=== PATIENT | female | born 1955 | race Two or more races ===

== ENCOUNTER → 2016-10-30 | Outpatient (CLI) | payer OTHER, MEDICAID ==
[~2016-10-30] VITALS: Ht 154.9 cm; Wt 74.8 kg
[~2016-10-30] MED LIST: AMLO5TAB2 PO; ASPI-407 PO; BENA40TA2 PO; CLOP75TA28 PO; INSUINJ37 SUBCUT; ISOS1TAB37 PO; LIRA18IN2 SUBCUT; METF-314 PO; METO-158 PO; PANT40T PO; SIMV-8 PO
[2016-10-30 08:45] VITALS: BP 143/73
[2016-10-30 09:15] VITALS: BP 133/71
[2016-10-30 12:31] LABS: Basophils # (auto) 0.1 uL; Basophils % (auto) 0.5 % (0.0-2.0); DEFINITIVE VIEW TRANSMISSION; Eosinophils # (auto) 0.4 uL; Eosinophils % (auto) 3.2 % (0.0-7.0); Hematocrit 42.2 % (36.0-46.0); Hemoglobin 13.1 g/dL (12.2-16.2); Lymphocytes # (auto) 2.7 uL; Mean Corpuscular Hemoglobin 25.7 pg (28.0-32.0); Mean Corpuscular Hgb Conc. 31.2 g/dL (32.0-36.0); Mean Corpuscular Volume 82.3 fL (80.0-100.0); Monocytes # (auto) 0.9 uL; Monocytes % (auto) 7.9 % (0.0-12.0); Neutrophils # (auto) 7.3 uL; Neutrophils % (auto) 64.4 % (37.0-80.0); Platelet Count (auto) 315 10^3/uL (140-450); Red Cell Distribution Width 15.6 % (11.6-16.0); White Blood Cell 11.3 10^3/uL (4.4-10.8)
[2016-10-30 12:50] LABS: INR 1.03 (0.9-1.15); Partial Thromboplastin Time 27.8 sec (22.64-33.71); Prothrombin Time 10.6 sec (9.37-12.3)
[2016-10-30 13:38] LABS: BUN/Creatinine Ratio 22.6; Potassium 4.9 mmol/L (3.5-5.1)
== END | disposition home or self-care (01) ==
LOC: Rad HDHVI 08:26
PROVIDERS: ATTEND Internal Medicine Cardiovascular Disease
DX: I10 Essential (primary) hypertension (principal); D64.9 Anemia, unspecified; R79.1 Abnormal coagulation profile
CPT/HCPCS: 36415; 71020; 80048; 85025; 85610; 85730; 93005; G0463

== ENCOUNTER → 2016-12-26 | Outpatient (CLI) | payer OTHER, MEDICAID ==
[2016-12-26 09:00] VITALS: BP 126/69
[2016-12-26 09:30] VITALS: BP 115/67
[2016-12-26 13:08] LABS: Basophils # (auto) 0.1 uL; Basophils % (auto) 0.6 % (0.0-2.0); DEFINITIVE VIEW TRANSMISSION; Eosinophils # (auto) 0.3 uL; Eosinophils % (auto) 3.4 % (0.0-7.0); Hemoglobin 13.7 g/dL (12.2-16.2); Lymphocytes # (auto) 2.1 uL; Lymphocytes % (auto) 26.1 % (10.0-50.0); Mean Corpuscular Hemoglobin 26.4 pg (28.0-32.0); Mean Corpuscular Hgb Conc. 32.6 g/dL (32.0-36.0); Mean Platelet Volume 9.8 fL (7.4-10.4); Monocytes # (auto) 0.7 uL; Neutrophils # (auto) 5.1 uL; Neutrophils % (auto) 61.9 % (37.0-80.0); Platelet Count (auto) 336 10^3/uL (140-450); Red Cell Distribution Width 15.3 % (11.6-16.0); White Blood Cell 8.2 10^3/uL (4.4-10.8)
[2016-12-26 13:17] LABS: INR 0.99 (0.9-1.15); Partial Thromboplastin Time 24.4 sec (22.64-33.71); Prothrombin Time 10.7 sec (9.37-12.3)
[2016-12-26 13:19] LABS: Calcium 9.5 mg/dL (8.5-10.1); Potassium 4.3 mmol/L (3.5-5.1)
== END | disposition home or self-care (01) ==
LOC: Rad HDHVI 08:44
PROVIDERS: ATTEND Internal Medicine Cardiovascular Disease
DX: I10 Essential (primary) hypertension (principal); D64.9 Anemia, unspecified; R79.1 Abnormal coagulation profile; Z01.812 Encounter for preprocedural laboratory examination
CPT/HCPCS: 36415; 71020; 80048; 85025; 85610; 85730; 93005; G0463

== ENCOUNTER → 2017-07-25 | Outpatient (CLI) | payer OTHER, MEDICAID ==
[~2017-07-25] MED LIST changes: -BENA40TA2 PO; +BENA40TA7 PO; -METF-314 PO; +METF-371 PO
== END | disposition home or self-care (01) ==
LOC: Rad HDHVI 08:35
PROVIDERS: ATTEND Internal Medicine Cardiovascular Disease
DX: I50.1 Left ventricular failure, unspecified (principal); I77.1 Stricture of artery
CPT/HCPCS: 93306; 93880

== ENCOUNTER → 2017-07-27 | Outpatient (CLI) | payer OTHER, MEDICAID ==
[~2017-07-27] VITALS: Ht 154.9 cm; Wt 74.4 kg
[~2017-07-27] MED LIST changes: +ADENOSINE 62 MG in GIVE UN-DILUTED 0 ML IV ONE; +ADENOSINE 90 MG/30 ML INJ IV ONE
== END | disposition home or self-care (01) ==
LOC: Rad HDHVI 08:09
PROVIDERS: ATTEND Internal Medicine Cardiovascular Disease
DX: I10 Essential (primary) hypertension (principal); I25.119 Atherosclerotic heart disease of native coronary artery with unspecified angina pectoris; E11.9 Type 2 diabetes mellitus without complications; I25.2 Old myocardial infarction; E78.00 Pure hypercholesterolemia, unspecified
CPT/HCPCS: 78452; 93005; 96374; 96375; A9500; J0153

== ENCOUNTER → 2017-10-15 | Outpatient (CLI) | payer OTHER, MEDICAID ==
[~2017-10-15] MED LIST changes: -ADENOSINE 62 MG in GIVE UN-DILUTED 0 ML IV ONE; -ADENOSINE 90 MG/30 ML INJ IV ONE; +INSLANTI SC; +METO-169 PO
[2017-10-15 08:55] VITALS: BP 109/64
[2017-10-15 09:32] VITALS: BP 109/64
[2017-10-15 12:10] LABS: Basophils # (auto) 0.1 uL; Basophils % (auto) 0.7 % (0.0-2.0); Eosinophils # (auto) 0.3 uL; Lymphocytes # (auto) 2.3 uL; Mean Corpuscular Hemoglobin 26.6 pg (28.0-32.0); Monocytes # (auto) 0.6 uL; Red Cell Distribution Width 14.8 % (11.8-14.3)
[2017-10-15 12:14] LABS: Eosinophils % (auto) 3.3 % (0.0-7.0); Hematocrit 39.2 % (36.0-46.0); Hemoglobin 12.8 g/dL (12.2-16.2); Lymphocytes % (auto) 30.9 % (10.0-50.0); Mean Corpuscular Hgb Conc. 32.7 g/dL (32.0-36.0); Mean Corpuscular Volume 81.2 fL (80.0-100.0); Monocytes % (auto) 8.5 % (0.0-12.0); Neutrophils # (auto) 4.2 uL; Neutrophils % (auto) 56.6 % (37.0-80.0); Nucleated Red Blood Cells % 0.5 %; Platelet Count (auto) 287 10^3/uL (140-450); Red Blood Cells 4.83 10^6/uL (4.0-5.20); White Blood Cell 7.5 10^3/uL (4.4-10.8)
[2017-10-15 12:24] LABS: BUN/Creatinine Ratio 22.4; Calcium 9.2 mg/dL (8.5-10.1); Potassium 5.1 mmol/L (3.5-5.1)
[2017-10-15 12:29] LABS: INR 0.96 (0.9-1.15); Partial Thromboplastin Time 27.1 sec (22.64-33.71); Prothrombin Time 10.5 sec (9.37-12.3)
== END | disposition home or self-care (01) ==
LOC: CHF HDHVI 08:38
PROVIDERS: ATTEND Internal Medicine Cardiovascular Disease
DX: Z01.818 Encounter for other preprocedural examination (principal); D64.9 Anemia, unspecified; I10 Essential (primary) hypertension; R79.1 Abnormal coagulation profile; I70.0 Atherosclerosis of aorta; M47.894 Other spondylosis, thoracic region
CPT/HCPCS: 36415; 71046; 80048; 85025; 85610; 85730; 93005; G0463

== ENCOUNTER 2017-10-18 06:45 | Inpatient (IN) | payer OTHER, MEDICAID ==
[~2017-10-18] VITALS: Ht 154.9 cm; Wt 73.0 kg
[~2017-10-18 06:45] MED LIST changes: -AMLO5TAB2 PO; -INSUINJ37 SUBCUT; -METO-158 PO
[2017-10-18] MEDS ORDERED: IOHEXOL 350 MG/ML 100ML IJ ONE (07:30)
[2017-10-18] MEDS ORDERED: LIDOCAINE 2%HCL (LOCAL ANESTH.) INJ 20ML MDV ONE (07:30)
[2017-10-18] MEDS ORDERED: MIDAZOLAM HCL 1MG/1ML-2 ML VIAL ONE (08:05)
[2017-10-18] MEDS ORDERED: VANCOMYCIN HCL 1000 MG VL ONE (08:05)
[2017-10-18] MEDS ORDERED: fentaNYL CITRATE 100 MCG/2 ML VL ONE (08:05)
[2017-10-18] MEDS ORDERED: VANCOMYCIN 1GM/250ML 250 ML IV ONE (08:06)
[2017-10-18] MEDS ORDERED: ceFAZolin 1GM/50ML 50 ML IV ONE (08:06)
[2017-10-18] MEDS ORDERED: NITROGLYCERIN 0.4 MG SL TAB SL PRN (10:45)
[2017-10-18] MEDS ORDERED: MORPHINE SULF INJ 2 MG/ML SYRINGE 1ML IV PRN (10:45)
[2017-10-18] MEDS ORDERED: LORazepam 0.5 MG TAB PO PRN (10:45)
[2017-10-18] MEDS ORDERED: DEXTROSE (50%) 50ML SYRG IV PRN (10:45)
[2017-10-18] MEDS ORDERED: HYDROcodone-ACET 5/325MG TAB PO PRN (10:45)
[2017-10-18] MEDS ORDERED: METOPROLOL SUCCINATE XL 50 MG TAB PO ONE (11:00)
[2017-10-18] MEDS ORDERED: CLOPIDOGREL BISULFATE 75 MG TAB PO ONE (11:00)
[2017-10-18] MEDS ORDERED: PANTOPRAZOLE 40 MG TAB PO ONE (11:00)
[2017-10-18] MEDS: InsuLIN REG 1unit/0.01ml Soln (100units/ml) SC SCH ×2 (11:30→16:59)
[2017-10-18] MEDS: HYDROcodone-ACET 10/325MG TAB PO PRN ×3 (11:41→22:05)
[2017-10-18] MEDS: ACCU-CHEK COMFORT CURVE STRIP VI SCH ×3 (11:42→21:27)
[2017-10-18 14:30] VITALS: BP 114/68
[2017-10-18 15:00] VITALS: BP 114/68
[2017-10-18] MEDS ORDERED: MORPHINE SULFATE 4 MG/ML SYR/VIAL IV PRN (20:15)
[2017-10-18] MEDS: VANCOMYCIN 1GM/250ML 250 ML IV SCH (21:59)
[2017-10-18 22:00] VITALS: BP 122/66
[2017-10-18] MEDS ORDERED: InsuLIN REG 1unit/0.01ml Soln (100units/ml) SC SCH (22:00)
[2017-10-19 05:00] VITALS: BP 130/68
[2017-10-19] MEDS: InsuLIN REG 1unit/0.01ml Soln (100units/ml) SC SCH ×3 (06:20→17:18)
[2017-10-19] MEDS: ACCU-CHEK COMFORT CURVE STRIP VI SCH ×3 (06:20→17:16)
[2017-10-19 07:30] VITALS: BP 100/63
[2017-10-19 09:00] VITALS: BP 100/63
[2017-10-19] MEDS ORDERED: CLOPIDOGREL BISULFATE 75 MG TAB PO SCH (10:00)
[2017-10-19] MEDS ORDERED: METOPROLOL SUCCINATE XL 50 MG TAB PO SCH (10:00)
[2017-10-19] MEDS ORDERED: PANTOPRAZOLE 40 MG TAB PO SCH (10:00)
[2017-10-19] MEDS: VANCOMYCIN 1GM/250ML 250 ML IV SCH (11:52)
[2017-10-19 12:33] VITALS: BP 118/69
[2017-10-19] MEDS: ACETAMINOPHEN 325 MG TAB PO PRN ×2 (13:11→19:38)
[2017-10-19 16:24] VITALS: BP 117/68
[2017-10-19 19:28] VITALS: BP 100/63
== END 2017-10-19 21:10 | disposition home or self-care (01) | DRG 226 ==
LOC: CATH 06:45 → TELE-WESTW 06:46
PROVIDERS: ADMIT Internal Medicine Cardiovascular Disease; ATTEND Internal Medicine Cardiovascular Disease
PROC: 0JH609Z Insertion of Cardiac Resynchronization Defibrillator Pulse Generator into Chest Subcutaneous Tissue and Fascia, Open Approach (ICD-10-PCS; principal; 2017-10-18)
PROC: 02HK3KZ Insertion of Defibrillator Lead into Right Ventricle, Percutaneous Approach (ICD-10-PCS; 2017-10-18)
PROC: 02H63KZ Insertion of Defibrillator Lead into Right Atrium, Percutaneous Approach (ICD-10-PCS; 2017-10-18)
PROC: 02HL3KZ Insertion of Defibrillator Lead into Left Ventricle, Percutaneous Approach (ICD-10-PCS; 2017-10-18)
DX: I42.0 Dilated cardiomyopathy (principal); I50.21 Acute systolic (congestive) heart failure; I11.0 Hypertensive heart disease with heart failure; E66.01 Morbid (severe) obesity due to excess calories; G47.30 Sleep apnea, unspecified; Z95.810 Presence of automatic (implantable) cardiac defibrillator; Z68.30 Body mass index [BMI] 30.0-30.9, adult; Z23 Encounter for immunization
CPT/HCPCS: 33249; 71045; 82962; 93005; 99152; J0690; J1815; J2250

== ENCOUNTER → 2017-12-20 | Outpatient (CLI) | payer OTHER, MEDICAID ==
[~2017-12-20] VITALS: Ht 154.9 cm; Wt 72.6 kg
[~2017-12-20] MED LIST changes: +ADENOSINE 61 MG in GIVE UN-DILUTED 0 ML IV ONE; +ADENOSINE 90 MG/30 ML INJ IV ONE
== END | disposition home or self-care (01) ==
LOC: Rad HDHVI 07:58
PROVIDERS: ATTEND Internal Medicine Cardiovascular Disease
DX: E11.65 Type 2 diabetes mellitus with hyperglycemia (principal); I11.0 Hypertensive heart disease with heart failure; I50.23 Acute on chronic systolic (congestive) heart failure; E78.4 Other hyperlipidemia; E78.00 Pure hypercholesterolemia, unspecified
CPT/HCPCS: 78452; 93005; 93306; 96374; 96375; A9500; J0153

== ENCOUNTER → 2018-02-28 | Outpatient (CLI) | payer OTHER, MEDICAID ==
[~2018-02-28] MED LIST changes: -ADENOSINE 61 MG in GIVE UN-DILUTED 0 ML IV ONE; -ADENOSINE 90 MG/30 ML INJ IV ONE
== END | disposition home or self-care (01) ==
LOC: Rad HDHVI 07:54
PROVIDERS: ATTEND Internal Medicine Cardiovascular Disease
DX: I07.1 Rheumatic tricuspid insufficiency (principal); I25.119 Atherosclerotic heart disease of native coronary artery with unspecified angina pectoris; I11.0 Hypertensive heart disease with heart failure; E11.65 Type 2 diabetes mellitus with hyperglycemia; I50.23 Acute on chronic systolic (congestive) heart failure; I42.0 Dilated cardiomyopathy; E78.5 Hyperlipidemia, unspecified; E78.00 Pure hypercholesterolemia, unspecified
CPT/HCPCS: 93306

== ENCOUNTER → 2018-07-10 | Outpatient (CLI) | payer OTHER, MEDICAID | END | disposition home or self-care (01) | LOC: Rad HDHVI 08:50 | PROVIDERS: ATTEND Internal Medicine Cardiovascular Disease | DX: T82.528A Displacement of other cardiac and vascular devices and implants, initial encounter (principal) | CPT/HCPCS: 71046 ==

== ENCOUNTER → 2018-08-27 | Outpatient (CLI) | payer OTHER, MEDICAID ==
[~2018-08-27] MED LIST changes: +ASPI81TA27 PO; +ISOS40TA6 PO; +METF-490 PO; +OMEP20TA PO; +SACU1TAB PO
[2018-08-27 10:09] VITALS: BP 123/62
[2018-08-27 10:50] VITALS: BP 123/70
[2018-08-27 12:06] LABS: Basophils # (auto) 0 uL; Eosinophils # (auto) 0.2 uL; Hemoglobin 13.5 g/dL (12.2-16.2); Lymphocytes # (auto) 2.5 uL; Nucleated Red Blood Cells % 0.2 %; Red Cell Distribution Width 15.6 % (11.8-14.3); White Blood Cell 7.5 10^3/uL (4.4-10.8)
[2018-08-27 12:09] LABS: Basophils % (auto) 0.7 % (0.0-2.0); Eosinophils % (auto) 2.6 % (0.0-7.0); Hematocrit 42.2 % (36.0-46.0); Lymphocytes % (auto) 33.7 % (10.0-50.0); Mean Corpuscular Hemoglobin 26.1 pg (28.0-32.0); Mean Corpuscular Hgb Conc. 31.9 g/dL (32.0-36.0); Mean Corpuscular Volume 81.7 fL (80.0-100.0); Monocytes # (auto) 0.6 uL; Monocytes % (auto) 8.7 % (0.0-12.0); Neutrophils % (auto) 54.3 % (37.0-80.0); Platelet Count (auto) 261 10^3/uL (140-450); Red Blood Cells 5.16 10^6/uL (4.0-5.20)
[2018-08-27 12:18] LABS: BUN/Creatinine Ratio 24.7; Calcium 8.7 mg/dL (8.5-10.1); Potassium 4.4 mmol/L (3.5-5.1)
[2018-08-27 12:21] LABS: INR 0.97 (0.9-1.15); Partial Thromboplastin Time 26.9 sec (23.78-33.04); Prothrombin Time 10.4 sec (9.27-12.13)
== END | disposition home or self-care (01) ==
LOC: Rad HDHVI 09:47
PROVIDERS: ATTEND Internal Medicine Cardiovascular Disease
DX: Z01.818 Encounter for other preprocedural examination (principal); I70.0 Atherosclerosis of aorta; I11.0 Hypertensive heart disease with heart failure; I50.9 Heart failure, unspecified; I42.0 Dilated cardiomyopathy; D64.9 Anemia, unspecified; R79.1 Abnormal coagulation profile
CPT/HCPCS: 36415; 71046; 80048; 85025; 85610; 85730; 93005; G0463

== ENCOUNTER → 2018-09-23 | Outpatient (CLI) | payer OTHER, MEDICAID ==
[~2018-09-23] MED LIST changes: -ASPI-407 PO; -BENA40TA7 PO; -ISOS1TAB37 PO; -METF-371 PO
== END | disposition home or self-care (01) ==
LOC: Rad HDHVI 09:23
PROVIDERS: ATTEND Internal Medicine Cardiovascular Disease
DX: I70.0 Atherosclerosis of aorta (principal); R06.02 Shortness of breath; R07.9 Chest pain, unspecified
CPT/HCPCS: 71046

== ENCOUNTER → 2019-01-14 | Outpatient (CLI) | payer OTHER, MEDICAID ==
[~2019-01-14] MED LIST changes: +POM IN
[2019-01-14 10:03] VITALS: BP 124/64
--- NOTE | 2019-01-14 10:03 | NUR ---
CHF PT ARRIVED AT THE CLINIC FOR PREOP EKG,CXR AND LABS V/S OBTAINED 0 DISTRESS Addendum: 01/14/19 at 1250 by CHRISTINE HISRCH MA CHARTED BY DAVID PENA RN
--- NOTE | 2019-01-14 10:03 | NUR ---
CHF PT ARRIVED AT [facility] FOR PREOP EKG, CXR,LAB FOR LEAD REPOSITIONING AT [facility] 01/16/19
--- NOTE | 2019-01-14 10:03 | NUR ---
Pre-Op Discharge Summary: See e-MAR for any medications given for this visit. Pre-op orders received and carried out per MD of EKG, LABS and chest xrays. Patient given a copy of EKG with instructions to go to [facility] out patient for further follow up care. Addendum: 01/14/19 at 1253 by CHRISTINE HIRSCH MA CHARTED BY DAVID PENA RN
[2019-01-14 10:25] VITALS: BP 129/67
--- NOTE | 2019-01-14 10:25 | NUR ---
Pre-Op Discharge Summary: See e-MAR for any medications given for this visit. Pre-op orders received and carried out per MD of EKG, LABS and chest xrays. Patient given a copy of EKG with instructions to go to [facility] out patient for further follow up care.
[2019-01-14 12:31] LABS: Basophils # (auto) 0.1 uL; Basophils % (auto) 0.8 % (0.0-2.0); Eosinophils # (auto) 0.2 uL; Lymphocytes # (auto) 2.2 uL; Monocytes # (auto) 0.6 uL; Nucleated Red Blood Cells % 0.2 %; White Blood Cell 6.8 10^3/uL (4.4-10.8)
[2019-01-14 12:34] LABS: Eosinophils % (auto) 2.8 % (0.0-7.0); Hemoglobin 12.2 g/dL (12.2-16.2); Lymphocytes % (auto) 32.1 % (10.0-50.0); Mean Corpuscular Hemoglobin 25.3 pg (28.0-32.0); Mean Corpuscular Hgb Conc. 32.1 g/dL (32.0-36.0); Mean Corpuscular Volume 78.9 fL (80.0-100.0); Neutrophils # (auto) 3.7 uL; Neutrophils % (auto) 55.3 % (37.0-80.0); Platelet Count (auto) 279 10^3/uL (140-450); Red Blood Cells 4.82 10^6/uL (4.0-5.20); Red Cell Distribution Width 15.4 % (11.8-14.3)
[2019-01-14 12:42] LABS: Calcium 9.4 mg/dL (8.5-10.1); Potassium 4.5 mmol/L (3.5-5.1)
[2019-01-14 12:44] LABS: BUN/Creatinine Ratio 29.2
[2019-01-14 12:46] LABS: INR 0.95 (0.9-1.15); Partial Thromboplastin Time 25.9 sec (23.78-33.04); Prothrombin Time 10.2 sec (9.27-12.13)
== END | disposition home or self-care (01) ==
LOC: Rad HDHVI 09:43
PROVIDERS: ATTEND Internal Medicine
DX: Z01.812 Encounter for preprocedural laboratory examination (principal); I70.0 Atherosclerosis of aorta; D64.9 Anemia, unspecified; R79.1 Abnormal coagulation profile; I10 Essential (primary) hypertension
CPT/HCPCS: 36415; 80048; 85025; 85610; 85730; 93005; G0463; 71046

== ENCOUNTER 2019-01-16 07:38 | Inpatient (IN) | payer OTHER, MEDICAID | END 2019-01-17 13:30 | disposition home or self-care (01) | LOC: CATH 07:38 → TELE-EAST 11:57 | PROC: 02PA3MZ Removal of Cardiac Lead from Heart, Percutaneous Approach (ICD-10-PCS; principal; ~2019-01-16) | PROC: 02HL3JZ Insertion of Pacemaker Lead into Left Ventricle, Percutaneous Approach (ICD-10-PCS; ~2019-01-16) | PROC: 02H63JZ Insertion of Pacemaker Lead into Right Atrium, Percutaneous Approach (ICD-10-PCS; ~2019-01-16) | PROC: 02HK3JZ Insertion of Pacemaker Lead into Right Ventricle, Percutaneous Approach (ICD-10-PCS; ~2019-01-16) | DX: I50.20 Unspecified systolic (congestive) heart failure (principal); Z95.810 Presence of automatic (implantable) cardiac defibrillator ==

== ENCOUNTER → 2019-04-24 | Outpatient (CLI) | payer OTHER, MEDICAID ==
[~2019-04-24] MED LIST changes: +ASPI-404 PO; -ASPI81TA27 PO; +ISOS30TA4 PO; -ISOS40TA6 PO; -PANT40T PO; -POM IN
== END | disposition home or self-care (01) ==
LOC: Rad HDHVI 10:40
PROVIDERS: ATTEND Internal Medicine Cardiovascular Disease
DX: I11.0 Hypertensive heart disease with heart failure (principal); I50.33 Acute on chronic diastolic (congestive) heart failure; R06.00 Dyspnea, unspecified
CPT/HCPCS: 93306

== ENCOUNTER → 2019-05-02 | Outpatient (CLI) | payer OTHER, MEDICAID | END | disposition home or self-care (01) | LOC: Rad HDHVI 09:02 | PROVIDERS: ATTEND Internal Medicine Cardiovascular Disease | DX: I67.2 Cerebral atherosclerosis (principal); M47.814 Spondylosis without myelopathy or radiculopathy, thoracic region | CPT/HCPCS: 70450; 71046 ==

== ENCOUNTER → 2020-09-23 | Outpatient (CLI) | payer OTHER, MEDICAID ==
[~2020-09-23] MED LIST changes: -ASPI-404 PO; +ASPI-543 PO
== END | disposition home or self-care (01) ==
LOC: Rad HDHVI 13:03
PROVIDERS: ATTEND Internal Medicine Cardiovascular Disease
DX: I50.43 Acute on chronic combined systolic (congestive) and diastolic (congestive) heart failure (principal); R06.02 Shortness of breath
CPT/HCPCS: 93306

== ENCOUNTER → 2020-09-27 | Outpatient (CLI) | payer OTHER, MEDICAID ==
[~2020-09-27] VITALS: Ht 154.9 cm; Wt 79.4 kg
[~2020-09-27] MED LIST changes: +ADENOSINE 67 MG in GIVE UN-DILUTED 0 ML IV ONE; +ADENOSINE 90 MG/30 ML INJ IV ONE
== END | disposition home or self-care (01) ==
LOC: Rad HDHVI 08:33
PROVIDERS: ATTEND Internal Medicine Cardiovascular Disease
DX: I25.10 Atherosclerotic heart disease of native coronary artery without angina pectoris (principal); I10 Essential (primary) hypertension; E78.00 Pure hypercholesterolemia, unspecified; E11.9 Type 2 diabetes mellitus without complications; R07.89 Other chest pain; Z95.0 Presence of cardiac pacemaker; Z88.0 Allergy status to penicillin
CPT/HCPCS: 78452; 93005; 96374; 96375; A9500; J0153

== ENCOUNTER → 2020-11-24 | Outpatient (CLI) | payer OTHER, MEDICAID ==
[~2020-11-24] MED LIST changes: -ADENOSINE 67 MG in GIVE UN-DILUTED 0 ML IV ONE; -ADENOSINE 90 MG/30 ML INJ IV ONE
[2020-11-24 11:58] LABS: Basophils # (auto) 0.1 10 ^3/uL (0-0.2); Hemoglobin 11.3 g/dL (12.2-16.2); Lymphocytes # (auto) 2.1 10 ^3/uL (0.4-5.4); Monocytes # (auto) 0.9 10 ^3/uL (0-1.3)
[2020-11-24 12:00] LABS: Basophils % (auto) 0.8 % (0.0-2.0); Eosinophils # (auto) 0.4 10 ^3/uL (0-0.8); Eosinophils % (auto) 3.6 % (0.0-7.0); Hematocrit 36.1 % (36.0-46.0); Lymphocytes % (auto) 21.5 % (10.0-50.0); Mean Corpuscular Hemoglobin 23.6 pg (28.0-32.0); Mean Corpuscular Hgb Conc. 31.3 g/dL (32.0-36.0); Mean Corpuscular Volume 75.2 fL (80.0-100.0); Monocytes % (auto) 9.1 % (0.0-12.0); Neutrophils # (auto) 6.4 10 ^3/uL (1.6-8.6); Platelet Count (auto) 352 10^3/uL (140-450); Red Cell Distribution Width 16.7 % (11.8-14.3); White Blood Cell 9.8 10^3/uL (4.4-10.8)
[2020-11-24 12:04] LABS: Urine Blood Negative /uL (Negative)
[2020-11-24 12:17] LABS: Albumin 3.4 g/dL (3.4-5.0); Potassium 4.5 mmol/L (3.5-5.1)
[2020-11-24 12:31] LABS: Free T4 (Free Thyroxine) 0.95 ng/dL (0.89-1.76)
[2020-11-24 12:38] LABS: BUN/Creatinine Ratio 29.7; Bilirubin, Total 0.4 mg/dL (0.2-1.0); Total Protein 7.6 g/dL (6.4-8.2)
== END | disposition home or self-care (01) ==
LOC: LAB 08:08
PROVIDERS: ATTEND Internal Medicine Cardiovascular Disease
DX: D51.3 Other dietary vitamin B12 deficiency anemia (principal); I10 Essential (primary) hypertension; E11.9 Type 2 diabetes mellitus without complications; E55.9 Vitamin D deficiency, unspecified; D64.9 Anemia, unspecified; R00.2 Palpitations; R53.1 Weakness; R30.0 Dysuria
CPT/HCPCS: 36415; 80053; 80061; 81003; 82306; 82607; 83036; 84439; 84443; 85025

== ENCOUNTER → 2021-02-22 | Outpatient (CLI) | payer OTHER, MEDICAID ==
[~2021-02-22] MED LIST changes: +CETI1TAB36 PO; +HYDR-4188 OR; +ISOS1TAB28 PO; -ISOS30TA4 PO; -METO-169 PO; +METO-289 PO; +PANT40TA2 PO
[2021-02-22 09:10] VITALS: BP 127/55
[2021-02-22 09:30] VITALS: BP 123/58
[2021-02-22 11:50] LABS: Basophils # (auto) 0 10 ^3/uL (0-0.2); Basophils % (auto) 0.3 % (0.0-2.0); Eosinophils # (auto) 0.2 10 ^3/uL (0-0.8); Eosinophils % (auto) 1.9 % (0.0-7.0); Hematocrit 36.8 % (36.0-46.0); Hemoglobin 11.5 g/dL (12.2-16.2); Lymphocytes # (auto) 2.6 10 ^3/uL (0.4-5.4); Lymphocytes % (auto) 25.4 % (10.0-50.0); Mean Corpuscular Hemoglobin 21.4 pg (28.0-32.0); Mean Corpuscular Hgb Conc. 31.2 g/dL (32.0-36.0); Mean Corpuscular Volume 68.4 fL (80.0-100.0); Monocytes # (auto) 0.9 10 ^3/uL (0-1.3); Monocytes % (auto) 8.7 % (0.0-12.0); Neutrophils # (auto) 6.6 10 ^3/uL (1.6-8.6); Neutrophils % (auto) 63.7 % (37.0-80.0); Platelet Count (auto) 368 10^3/uL (140-450); Red Blood Cells 5.38 10^6/uL (4.0-5.20); White Blood Cell 10.4 10^3/uL (4.4-10.8)
[2021-02-22 12:00] LABS: Calcium 9.2 mg/dL (8.5-10.1); Potassium 3.8 mmol/L (3.5-5.1)
[2021-02-22 12:04] LABS: BUN/Creatinine Ratio 13.6
[2021-02-22 12:05] LABS: INR 1.04 (0.9-1.15); Partial Thromboplastin Time 26.8 sec (23.0-31.2)
== END | disposition home or self-care (01) ==
LOC: CHF HDHVI 09:00
PROVIDERS: ATTEND Internal Medicine Cardiovascular Disease
DX: Z01.812 Encounter for preprocedural laboratory examination (principal); I50.9 Heart failure, unspecified; I51.7 Cardiomegaly; I73.9 Peripheral vascular disease, unspecified; L98.499 Non-pressure chronic ulcer of skin of other sites with unspecified severity
CPT/HCPCS: 36415; 80048; 85025; 85610; 85730; 93005; G0463

== ENCOUNTER 2021-02-24 09:16 | Day surgery (SDC) | payer OTHER, MEDICAID ==
[~2021-02-24] VITALS: Ht 154.9 cm; Wt 78.9 kg
[~2021-02-24 09:16] MED LIST changes: -ISOS1TAB28 PO; -METF-490 PO; -OMEP20TA PO
[2021-02-24] MEDS ORDERED: LIDOCAINE 2%HCL (LOCAL ANESTH.) INJ 20ML MDV ONE (10:29)
[2021-02-24] MEDS ORDERED: IOHEXOL 350 MG/ML 100ML IJ ONE (10:29)
[2021-02-24] MEDS ORDERED: ANGIOMAX 250 MG VIAL IV ONE (10:39)
[2021-02-24] MEDS ORDERED: SODIUM CHL 0.9% 50 ML ONE (10:39)
[2021-02-24] MEDS ORDERED: MIDAZOLAM HCL 2MG/2ML 2ml VIAL (1mg/ml) ONE (10:39)
[2021-02-24] MEDS ORDERED: fentaNYL CITRATE 100 MCG/2 ML VL ONE (10:39)
== END 2021-02-24 14:12 | disposition home or self-care (01) ==
LOC: CATH 09:16
PROVIDERS: ATTEND Internal Medicine Cardiovascular Disease
DX: I70.212 Atherosclerosis of native arteries of extremities with intermittent claudication, left leg (principal); I10 Essential (primary) hypertension; E11.9 Type 2 diabetes mellitus without complications; I25.10 Atherosclerotic heart disease of native coronary artery without angina pectoris; J45.909 Unspecified asthma, uncomplicated; Z88.0 Allergy status to penicillin; G47.30 Sleep apnea, unspecified; F32.9 Major depressive disorder, single episode, unspecified; Z95.5 Presence of coronary angioplasty implant and graft; F17.200 Nicotine dependence, unspecified, uncomplicated; E66.9 Obesity, unspecified; Z80.0 Family history of malignant neoplasm of digestive organs; Z20.822 Contact with and (suspected) exposure to COVID-19; Z98.890 Other specified postprocedural states; Z79.899 Other long term (current) drug therapy; Z88.5 Allergy status to narcotic agent; Z80.8 Family history of malignant neoplasm of other organs or systems; Z68.32 Body mass index [BMI] 32.0-32.9, adult
CPT/HCPCS: 37224; 37228; 75716; C1725; C1760; C1769; C1887; C1894; J0583; J1644; J2250; J3010; Q9967; U0003; 99152; 99153

== ENCOUNTER → 2021-09-28 | Outpatient (CLI) | payer OTHER, MEDICAID | END | disposition home or self-care (01) | LOC: Rad HDHVI 07:58 | PROVIDERS: ATTEND Internal Medicine Cardiovascular Disease | DX: I65.23 Occlusion and stenosis of bilateral carotid arteries (principal); I10 Essential (primary) hypertension; E78.5 Hyperlipidemia, unspecified | CPT/HCPCS: 93880 ==

== ENCOUNTER → 2022-01-10 | Outpatient (CLI) | payer OTHER, MEDICAID | END | disposition home or self-care (01) | LOC: Rad HDHVI 09:56 | PROVIDERS: ATTEND Internal Medicine Cardiovascular Disease | DX: I08.3 Combined rheumatic disorders of mitral, aortic and tricuspid valves (principal); I50.43 Acute on chronic combined systolic (congestive) and diastolic (congestive) heart failure; R00.2 Palpitations | CPT/HCPCS: 93306 ==

== ENCOUNTER → 2022-01-24 | Outpatient (CLI) | payer OTHER, MEDICAID ==
[~2022-01-24] VITALS: Ht 154.9 cm; Wt 72.1 kg
[~2022-01-24] MED LIST changes: +ADENOSINE 61 MG in GIVE UN-DILUTED 0 ML IV ONE; +ADENOSINE 90 MG/30 ML INJ IV ONE
== END | disposition home or self-care (01) ==
LOC: Rad HDHVI 08:06
PROVIDERS: ATTEND Internal Medicine Cardiovascular Disease
DX: R94.31 Abnormal electrocardiogram [ECG] [EKG] (principal); I11.0 Hypertensive heart disease with heart failure; I50.43 Acute on chronic combined systolic (congestive) and diastolic (congestive) heart failure; I25.10 Atherosclerotic heart disease of native coronary artery without angina pectoris; E78.5 Hyperlipidemia, unspecified; I42.0 Dilated cardiomyopathy; E11.21 Type 2 diabetes mellitus with diabetic nephropathy; Z95.0 Presence of cardiac pacemaker
CPT/HCPCS: 78452; 93005; 96374; 96375; A9500; J0153

== ENCOUNTER 2022-11-17 11:37 | Day surgery (SDC) | payer OTHER, MEDICAID ==
[2022-11-13 13:26] LABS: Basophils # (auto) 0.2 10 ^3/uL (0-0.2); Basophils % (auto) 2.3 % (0.0-2.0); Eosinophils # (auto) 0.2 10 ^3/uL (0-0.8); Eosinophils % (auto) 2.8 % (0.0-7.0); Hematocrit 42.5 % (36.0-46.0); Hemoglobin 13.8 g/dL (12.2-16.2); Lymphocytes # (auto) 2.1 10 ^3/uL (0.4-5.4); Mean Corpuscular Hemoglobin 27.3 pg (28.0-32.0); Mean Corpuscular Hgb Conc. 32.6 g/dL (32.0-36.0); Mean Corpuscular Volume 83.9 fL (80.0-100.0); Monocytes # (auto) 0.6 10 ^3/uL (0-1.3); Monocytes % (auto) 6.9 % (0.0-12.0); Nucleated Red Blood Cells % 0.2 %; Red Blood Cells 5.06 10^6/uL (4.0-5.20); Red Cell Distribution Width 16.3 % (11.8-14.3)
[2022-11-13 14:01] LABS: Partial Thromboplastin Time 27.6 sec (24.6-33.4)
[2022-11-13 14:17] LABS: BUN/Creatinine Ratio 21.7; Potassium 4.2 mmol/L (3.5-5.1)
[2022-11-17] VITALS (10 sets, daily range): BP systolic 101–136; BP diastolic 60–79
[~2022-11-17] VITALS: Ht 154.9 cm; Wt 73.5 kg
[~2022-11-17 11:37] MED LIST changes: -ADENOSINE 61 MG in GIVE UN-DILUTED 0 ML IV ONE; -ADENOSINE 90 MG/30 ML INJ IV ONE; +DOCU-80 PO; +GABA300C10 PO
[2022-11-17] MEDS ORDERED: MIDAZOLAM HCL 2MG/2ML 2ml VIAL (1mg/ml) ONE (15:05)
[2022-11-17] MEDS ORDERED: fentaNYL CITRATE 100 MCG/2 ML VL ONE (15:05)
[2022-11-17] MEDS ORDERED: ANGIOMAX 250 MG VIAL IV ONE (15:07)
[2022-11-17] MEDS ORDERED: SODIUM CHL 0.9% 50 ML ONE (15:07)
[2022-11-17] MEDS ORDERED: IODIXANOL 320MG/ML 100ML BTL IV ONE (15:41)
[2022-11-17] MEDS ORDERED: ASPirin 81 mg TAB ONE (15:48)
== END 2022-11-17 18:18 | disposition home or self-care (01) ==
LOC: CATH 11:37
PROVIDERS: ATTEND Internal Medicine Cardiovascular Disease
DX: I25.10 Atherosclerotic heart disease of native coronary artery without angina pectoris (principal); E11.40 Type 2 diabetes mellitus with diabetic neuropathy, unspecified; E11.21 Type 2 diabetes mellitus with diabetic nephropathy; I25.5 Ischemic cardiomyopathy; M06.9 Rheumatoid arthritis, unspecified; F41.9 Anxiety disorder, unspecified; J44.9 Chronic obstructive pulmonary disease, unspecified; I10 Essential (primary) hypertension; E78.5 Hyperlipidemia, unspecified; Z79.899 Other long term (current) drug therapy; Z88.0 Allergy status to penicillin; Z95.810 Presence of automatic (implantable) cardiac defibrillator; Z20.822 Contact with and (suspected) exposure to COVID-19
CPT/HCPCS: 36415; 80048; 85025; 85610; 85730; 92978; 93458; 93571; C1769; C1887; C9600; J0583; J1644; J2250; J3010; Q9967; U0003

== ENCOUNTER → 2023-01-08 | Outpatient (CLI) | payer OTHER ==
[~2023-01-08] MED LIST changes: +ALBUAER3 IN; +BRIM0.2S17 EACHEYE; +CHOL100079 OR; +CHOL1CAP59 PO; +CYA100I IM; +DORZ2SOL18 EACHEYE; +FLU220IH INH; +HYDR-4798 PO; +LATA0.0019 EACHEYE; +TICA90TA PO
[2023-01-08 11:58] LABS: Basophils # (auto) 0.1 10 ^3/uL (0-0.2); Basophils % (auto) 0.8 % (0.0-2.0); Eosinophils # (auto) 0.1 10 ^3/uL (0-0.8); Eosinophils % (auto) 1.8 % (0.0-7.0); Hematocrit 42.9 % (36.0-46.0); Hemoglobin 13.8 g/dL (12.2-16.2); Lymphocytes # (auto) 1.6 10 ^3/uL (0.4-5.4); Mean Corpuscular Hemoglobin 27.1 pg (28.0-32.0); Mean Corpuscular Hgb Conc. 32.3 g/dL (32.0-36.0); Mean Corpuscular Volume 83.8 fL (80.0-100.0); Monocytes # (auto) 0.7 10 ^3/uL (0-1.3); Monocytes % (auto) 8.1 % (0.0-12.0); Neutrophils # (auto) 5.7 10 ^3/uL (1.6-8.6); Neutrophils % (auto) 69.3 % (37.0-80.0); Nucleated Red Blood Cells % 0.1 %; Red Blood Cells 5.12 10^6/uL (4.0-5.20); Red Cell Distribution Width 15.1 % (11.8-14.3); White Blood Cell 8.2 10^3/uL (4.4-10.8)
[2023-01-08 12:14] LABS: INR 1.01 (0.9-1.15); Partial Thromboplastin Time 27.3 sec (24.6-33.4)
[2023-01-08 13:16] LABS: Potassium 4.6 mmol/L (3.5-5.1)
[2023-01-08 13:20] LABS: Calcium 9.3 mg/dL (8.5-10.1)
== END | disposition home or self-care (01) ==
LOC: LAB 11:27
PROVIDERS: ATTEND Internal Medicine Cardiovascular Disease
DX: Z01.812 Encounter for preprocedural laboratory examination (principal); R79.1 Abnormal coagulation profile
CPT/HCPCS: 36415; 80048; 85025; 85610; 85730

== ENCOUNTER → 2023-01-08 | Outpatient (CLI) | payer OTHER ==
[2023-01-08 10:37] VITALS: BP 137/66
[2023-01-08 10:59] VITALS: BP 116/58
== END | disposition home or self-care (01) ==
LOC: Rad HDHVI 10:16
PROVIDERS: ATTEND Internal Medicine Cardiovascular Disease
DX: Z01.818 Encounter for other preprocedural examination (principal); I51.7 Cardiomegaly; R42 Dizziness and giddiness; I50.23 Acute on chronic systolic (congestive) heart failure; R06.02 Shortness of breath; M51.34 Other intervertebral disc degeneration, thoracic region; M19.011 Primary osteoarthritis, right shoulder
CPT/HCPCS: 71046; 93005; G0463

== ENCOUNTER 2023-01-11 08:18 | Day surgery (SDC) | payer OTHER, MEDICAID ==
[~2023-01-11] VITALS: Ht 154.9 cm; Wt 76.2 kg
[~2023-01-11 08:18] MED LIST changes: -CHOL100079 OR; -DOCU-80 PO; -HYDR-4188 OR; -METO-289 PO
[2023-01-11] MEDS ORDERED: MIDAZOLAM HCL 2MG/2ML 2ml VIAL (1mg/ml) ONE (11:44)
[2023-01-11] MEDS ORDERED: ANGIOMAX 250 MG VIAL IV ONE (11:44)
[2023-01-11] MEDS ORDERED: fentaNYL CITRATE 100 MCG/2 ML VL ONE (11:44)
[2023-01-11] MEDS ORDERED: SODIUM CHL 0.9% 50 ML ONE (11:45)
[2023-01-11] MEDS ORDERED: IOHEXOL 350 MG/ML 100ML IJ ONE (11:45)
[2023-01-11] MEDS ORDERED: LIDOCAINE 2%HCL (LOCAL ANESTH.) INJ 20ML MDV ONE (11:45)
[2023-01-11] MEDS ORDERED: ATROPINE SULF 1 MG/10ml SYR ONE (12:15)
[2023-01-11] MEDS ORDERED: EPINEPHrine HCL 1 MG/10 ML SYRG ONE (12:15)
[2023-01-11] MEDS ORDERED: CYAN1TAB11 PO (13:13)
== END 2023-01-11 14:55 | disposition home or self-care (01) ==
LOC: CATH 08:18
PROVIDERS: ATTEND Internal Medicine Cardiovascular Disease
DX: I25.10 Atherosclerotic heart disease of native coronary artery without angina pectoris (principal); I25.5 Ischemic cardiomyopathy; E11.40 Type 2 diabetes mellitus with diabetic neuropathy, unspecified; E11.21 Type 2 diabetes mellitus with diabetic nephropathy; E11.51 Type 2 diabetes mellitus with diabetic peripheral angiopathy without gangrene; I11.0 Hypertensive heart disease with heart failure; I50.20 Unspecified systolic (congestive) heart failure; Z95.810 Presence of automatic (implantable) cardiac defibrillator
CPT/HCPCS: 93454; C1725; C1769; C1874; C1887; C1894; C9600; J0583; J1644; J2250; J3010; Q9967; 99152; 99153

== ENCOUNTER → 2023-02-21 | Outpatient (CLI) | payer OTHER ==
[~2023-02-21] MED LIST changes: -CYA100I IM; +CYAN1TAB11 PO; +GABA-1250 PO; -GABA300C10 PO; -LATA0.0019 EACHEYE; +LATA0.008 EACHEYE; -SIMV-8 PO; +SIMV20TA20 PO
== END | disposition home or self-care (01) ==
LOC: Rad HDHVI 09:56
PROVIDERS: ATTEND Internal Medicine Cardiovascular Disease
DX: R06.02 Shortness of breath (principal); R42 Dizziness and giddiness
CPT/HCPCS: 93306

== ENCOUNTER → 2023-05-11 | Outpatient (CLI) | payer OTHER | END | disposition home or self-care (01) | LOC: Rad HDHVI 10:34 | PROVIDERS: ATTEND Internal Medicine Cardiovascular Disease | DX: M51.37 Other intervertebral disc degeneration, lumbosacral region (principal); M54.50 Low back pain, unspecified; M47.816 Spondylosis without myelopathy or radiculopathy, lumbar region | CPT/HCPCS: 72131 ==

== ENCOUNTER → 2023-10-01 | Outpatient (CLI) | payer OTHER ==
[~2023-10-01] VITALS: Ht 154.9 cm; Wt 78.0 kg
[~2023-10-01] MED LIST changes: +ADENOSINE 66 MG in GIVE UN-DILUTED 0 ML IV ONE; +ADENOSINE 90 MG/30 ML INJ IV ONE
== END | disposition home or self-care (01) ==
LOC: Rad HDHVI 13:25
PROVIDERS: ATTEND Internal Medicine Cardiovascular Disease
DX: I11.0 Hypertensive heart disease with heart failure (principal); I50.33 Acute on chronic diastolic (congestive) heart failure; E11.9 Type 2 diabetes mellitus without complications; R00.2 Palpitations; E78.00 Pure hypercholesterolemia, unspecified; I25.5 Ischemic cardiomyopathy; Z95.0 Presence of cardiac pacemaker
CPT/HCPCS: 78452; 93005; 96374; 96375; A9500; J0153

== ENCOUNTER 2023-11-03 09:03 | Emergency (ER) | payer OTHER, MEDICAID ==
[~2023-11-03] VITALS: Ht 152.4 cm; Wt 78.2 kg
[~2023-11-03 09:03] MED LIST changes: -ADENOSINE 66 MG in GIVE UN-DILUTED 0 ML IV ONE; -ADENOSINE 90 MG/30 ML INJ IV ONE
[2023-11-03] MEDS: HYDROcodone-ACET 10/325MG TAB PO ONE (10:31)
[2023-11-03 10:35] VITALS: BP 142/70; PULSE 80; RESP 18; O2SAT 98
== END 2023-11-03 10:36 | disposition home or self-care (01) ==
LOC: ER 09:03
DX: R51.9 Headache, unspecified (principal); R42 Dizziness and giddiness; E11.9 Type 2 diabetes mellitus without complications; I10 Essential (primary) hypertension; Z86.73 Personal history of transient ischemic attack (TIA), and cerebral infarction without residual deficits; Z88.0 Allergy status to penicillin; Z88.6 Allergy status to analgesic agent; W18.09XA Striking against other object with subsequent fall, initial encounter; Y93.89 Activity, other specified; Y92.89 Other specified places as the place of occurrence of the external cause; Y99.8 Other external cause status
CPT/HCPCS: 70450

== ENCOUNTER → 2024-05-05 | Outpatient (CLI) | payer OTHER | END | disposition home or self-care (01) | LOC: Rad HDHVI 14:57 | PROVIDERS: ATTEND Internal Medicine Cardiovascular Disease | DX: I50.23 Acute on chronic systolic (congestive) heart failure (principal); R06.02 Shortness of breath | CPT/HCPCS: 93306 ==

== ENCOUNTER → 2024-06-10 | Outpatient (CLI) | payer OTHER ==
[~2024-06-10] MED LIST changes: -BRIM0.2S17 EACHEYE; +BRIM0.2S17 LEFTEYE; +CARV6.2517 PO; +CHOL50007 PO; +DIGO0.12 PO; +DOCU1CAP46 PO; -DORZ2SOL18 EACHEYE; +DORZ2SOL18 LEFTEYE; +HYDR-3682 PO; -LATA0.008 EACHEYE; +LATA0.008 LEFTEYE; +PANT40T PO; +TEMA15CA2 PO; +TICA1TAB PO; +TIRZ2.5I SC
[2024-06-10 09:00] VITALS: BP 113/56; PULSE 77; RESP 16; O2SAT 96
[2024-06-10 09:15] VITALS: BP 115/57; PULSE 75; RESP 16; O2SAT 96
== END | disposition home or self-care (01) ==
LOC: Rad HDHVI 08:53
PROVIDERS: ATTEND Internal Medicine Cardiovascular Disease
DX: R94.31 Abnormal electrocardiogram [ECG] [EKG] (principal); I65.21 Occlusion and stenosis of right carotid artery; I25.5 Ischemic cardiomyopathy; I10 Essential (primary) hypertension; I49.1 Atrial premature depolarization
CPT/HCPCS: 93005; G0463

== ENCOUNTER 2024-06-12 08:06 | Inpatient (IN) | payer OTHER, MEDICAID ==
[2024-06-10 11:49] LABS: Basophils # (auto) 0.1 10 ^3/uL (0-0.2); Eosinophils # (auto) 0.3 10 ^3/uL (0-0.8); Monocytes # (auto) 0.7 10 ^3/uL (0-1.3); Neutrophils # (auto) 6.2 10 ^3/uL (1.6-8.6); Platelet Count (auto) 293 10^3/uL (140-450); Red Cell Distribution Width 16.6 % (11.8-14.3); White Blood Cell 9.7 10^3/uL (4.4-10.8)
[2024-06-10 11:50] LABS: Basophils % (auto) 0.8 % (0.0-2.0); Eosinophils % (auto) 3.1 % (0.0-7.0); Hematocrit 40.6 % (36.0-46.0); Hemoglobin 13.6 g/dL (12.2-16.2); Lymphocytes # (auto) 2.4 10 ^3/uL (0.4-5.4); Lymphocytes % (auto) 24.8 % (10.0-50.0); Mean Corpuscular Hemoglobin 26.5 pg (28.0-32.0); Mean Corpuscular Hgb Conc. 33.5 g/dL (32.0-36.0); Mean Corpuscular Volume 78.9 fL (80.0-100.0); Monocytes % (auto) 7.4 % (0.0-12.0); Neutrophils % (auto) 63.9 % (37.0-80.0); Red Blood Cells 5.14 10^6/uL (4.0-5.20)
[2024-06-10 12:04] LABS: INR 1.05 (0.9-1.15); Partial Thromboplastin Time 22.2 SEC (24.5-34.5); Prothrombin Time 11.1 sec (9.3-11.8)
[2024-06-10 12:20] LABS: Calcium 9.8 mg/dL (8.7-10.4); Chloride 103 mmol/L (98-107); Potassium 4.4 mmol/L (3.5-5.1); Sodium 138 mmol/L (136-145)
[2024-06-10 12:21] LABS: Anion Gap 9 (5-15); Carbon Dioxide 26 mmol/L (20-30)
[2024-06-10 12:26] LABS: BUN/Creatinine Ratio 18.2 (10.0-20.0); Blood Urea Nitrogen 12 mg/dL (9-23); Glucose 159 mg/dL (74-106)
[~2024-06-12] VITALS: Ht 154.9 cm; Wt 65.3 kg
[2024-06-12] VITALS (13 sets, daily range): BP systolic 84–122; BP diastolic 37–79; PULSE 63–85; RESP 12–20; TEMP 97.7–98.6; O2SAT 92–100
[~2024-06-12 08:06] MED LIST changes: -CHOL1CAP59 PO; -CLOP75TA28 PO; -CYAN1TAB11 PO; -GABA-1250 PO; -LIRA18IN2 SUBCUT; -PANT40TA2 PO; -TICA90TA PO
[2024-06-12] MEDS ORDERED: ANGIOMAX 250 MG VIAL IV ONE (12:30)
[2024-06-12] MEDS ORDERED: SODIUM CHL 0.9% 50 ML ONE (12:30)
[2024-06-12] MEDS ORDERED: GLYCOPYRROLATE 0.2 MG/ML 1ML VIAL ONE (12:30)
[2024-06-12] MEDS ORDERED: IOHEXOL 350 MG/ML 100ML IJ ONE (12:40)
[2024-06-12] MEDS ORDERED: LIDOCAINE 2%HCL (LOCAL ANESTH.) INJ 20ML MDV ONE (12:54)
[2024-06-12] MEDS ORDERED: PHENYLEPHRINE HCL 10 MG/ML VL ONE (13:13)
[2024-06-12] MEDS ORDERED: DEXTROSE (50%) 50ML SYRG IV PRN (14:15)
[2024-06-12] MEDS ORDERED: NITROGLYCERIN 0.4 MG SL TAB SL PRN (14:15)
[2024-06-12] MEDS: HYDROcodone-ACET 10/325MG TAB PO ONE (15:25)
[2024-06-12] MEDS: InsuLIN REG 1unit/0.01ml Soln (100units/ml) SC SCH ×2 (17:00→22:00)
[2024-06-12] MEDS: ACCU-CHEK COMFORT CURVE STRIP VI SCH (17:00)
[2024-06-12] MEDS: TEMAZEPAM 15 MG CAP PO SCH (18:00)
[2024-06-12] MEDS: BRIMONIDINE 0.2% OPTH Soln 5ml LEFTEYE SCH (22:00)
[2024-06-12] MEDS: CARVEDILOL 3.125 MG TAB PO SCH (22:00)
[2024-06-12] MEDS: INSULIN LANTUS (GLARGINE) 1 /0.01ml (100units/ml) SC SCH (22:00)
[2024-06-12] MEDS: TICAGRELOR 60 MG TAB PO SCH (23:09)
[2024-06-12] MEDS: HYDROcodone-ACET 10/325MG TAB PO PRN (23:10)
[2024-06-12] MEDS: DORZOLAM-TIMOLOL(2/0.5%) OPTH(EYE) SOLN 10ML LEFTEYE SCH (23:10)
[2024-06-13 01:00] VITALS: BP 91/33; PULSE 60; RESP 16; TEMP 98.2; O2SAT 96
[2024-06-13 05:00] VITALS: BP 128/50; PULSE 57; RESP 17; TEMP 98; O2SAT 96
[2024-06-13] MEDS: SACUBITRIL-VALSARTAN 24mg/26mg TAB PO SCH (06:03)
[2024-06-13 08:00] VITALS: PULSE 80
[2024-06-13 09:00] VITALS: BP 116/59; PULSE 82; RESP 14; TEMP 98.4; O2SAT 95
[2024-06-13] MEDS: ASPirin-EC 81 mg tab PO SCH (09:36)
[2024-06-13] MEDS: PANTOPRAZOLE 40 MG TAB PO SCH (09:37)
[2024-06-13] MEDS: DIGOXIN 0.125 MG TAB PO SCH (09:47)
[2024-06-13] MEDS ORDERED: ATORVASTATIN 20 MG TAB PO SCH (18:00)
[2024-06-13] MEDS ORDERED: LATANOPROST 0.005 % OPTH(EYE) SOL 2.5ML LEFTEYE SCH (18:00)
== END 2024-06-13 11:30 | disposition home or self-care (01) | DRG 35 ==
LOC: CATH 08:06 → TELE 14:13 → TELE-CENTR 16:53
PROVIDERS: ADMIT Internal Medicine Cardiovascular Disease; ATTEND Internal Medicine Cardiovascular Disease
PROC: 037L3DZ Dilation of Left Internal Carotid Artery with Intraluminal Device, Percutaneous Approach (ICD-10-PCS; principal; 2024-06-12)
PROC: 3E05317 Introduction of Other Thrombolytic into Peripheral Artery, Percutaneous Approach (ICD-10-PCS; 2024-06-12)
PROC: B3151ZZ Fluoroscopy of Bilateral Common Carotid Arteries using Low Osmolar Contrast (ICD-10-PCS; 2024-06-12)
PROC: B31N1ZZ Fluoroscopy of Other Upper Arteries using Low Osmolar Contrast (ICD-10-PCS; 2024-06-12)
PROC: B3121ZZ Fluoroscopy of Left Subclavian Artery using Low Osmolar Contrast (ICD-10-PCS; 2024-06-12)
PROC: B3181ZZ Fluoroscopy of Bilateral Internal Carotid Arteries using Low Osmolar Contrast (ICD-10-PCS; 2024-06-12)
PROC: B31C1ZZ Fluoroscopy of Bilateral External Carotid Arteries using Low Osmolar Contrast (ICD-10-PCS; 2024-06-12)
DX: I65.23 Occlusion and stenosis of bilateral carotid arteries (principal); I50.22 Chronic systolic (congestive) heart failure; E11.21 Type 2 diabetes mellitus with diabetic nephropathy; E11.51 Type 2 diabetes mellitus with diabetic peripheral angiopathy without gangrene; I11.0 Hypertensive heart disease with heart failure; I25.5 Ischemic cardiomyopathy; E78.5 Hyperlipidemia, unspecified; I25.10 Atherosclerotic heart disease of native coronary artery without angina pectoris; Z79.4 Long term (current) use of insulin; Z86.73 Personal history of transient ischemic attack (TIA), and cerebral infarction without residual deficits
CPT/HCPCS: 36415; 37211; 37215; 80048; 82962; 85025; 85610; 85730; 99152; G0378; J1815

== ENCOUNTER → 2024-11-07 | Outpatient (CLI) | payer OTHER, MEDICAID ==
[~2024-11-07] VITALS: Ht 154.9 cm; Wt 63.5 kg
[~2024-11-07] MED LIST changes: +ADENOSINE 53 MG in GIVE UN-DILUTED 0 ML IV ONE; +ADENOSINE 90 MG/30 ML INJ IV ONE
== END | disposition home or self-care (01) ==
LOC: Rad HDHVI 08:12
PROVIDERS: ATTEND Internal Medicine Cardiovascular Disease
DX: I49.3 Ventricular premature depolarization (principal); I25.119 Atherosclerotic heart disease of native coronary artery with unspecified angina pectoris; E11.21 Type 2 diabetes mellitus with diabetic nephropathy; N18.9 Chronic kidney disease, unspecified; R06.02 Shortness of breath; R00.2 Palpitations; I63.9 Cerebral infarction, unspecified; I11.9 Hypertensive heart disease without heart failure; E78.00 Pure hypercholesterolemia, unspecified; Z95.810 Presence of automatic (implantable) cardiac defibrillator; Z95.828 Presence of other vascular implants and grafts
CPT/HCPCS: 78452; 93005; 93017; A9500; J0153; 96374; 96375

== ENCOUNTER → 2024-11-12 | Outpatient (CLI) | payer OTHER, MEDICAID ==
[~2024-11-12] MED LIST changes: -ADENOSINE 53 MG in GIVE UN-DILUTED 0 ML IV ONE; -ADENOSINE 90 MG/30 ML INJ IV ONE
--- NOTE | 2024-11-12 12:33 | DVH ---
EXAM: CT HEAD WITHOUT CONTRAST HISTORY: R/O CVA COMPARISON: CT HEAD WITHOUT CONTRAST on DOS: 04/23/24, CT HEAD WITHOUT CONTRAST on DOS: 11/03/23 TECHNIQUE: Axial images of the head were obtained and reformatted in coronal and sagittal planes. All CT scans at this medical facility are performed using dose modulation techniques as appropriate t o a performed exam including the following: Automated exposure control was utilized; adjustment of th e MA and/or KV according to patient size; and use of iterative reconstruction technique. CT Dose: CTDI volume is 51.29 mGy. Dose-length product is 820.63 mGy*cm FINDINGS: There is no evidence of acute intracranial hemorrhage, mass, mass effect midline shift. There is no h ydrocephalus or extra-axial fluid collection. Dubon-white matter differentiation is maintained. The visualized paranasal sinuses and mastoid air cells are clear. The calvarium is intact. IMPRESSION: 1. No acute intracranial process. HS:Y
== END | disposition home or self-care (01) ==
LOC: Rad HDHVI 08:50
PROVIDERS: ATTEND Internal Medicine Cardiovascular Disease
DX: Z03.89 Encounter for observation for other suspected diseases and conditions ruled out (principal); I63.9 Cerebral infarction, unspecified; Z95.810 Presence of automatic (implantable) cardiac defibrillator
CPT/HCPCS: 70450

== ENCOUNTER 2025-02-20 08:45 | Emergency (ER) | payer OTHER, MEDICAID ==
--- NOTE | 2025-02-20 09:30 | ED.PDOC ---
Back pain HPI HPI Comments 69-YEAR-OLD FEMALE PRESENTS HERE WITH UPPER BACK PAIN. BACK PAIN HOWEVER HAS BEEN CHRONIC AND SHE SEES PAIN MANAGEMENT FOR IT. HOWEVER SHE TOOK HER NORMAL NORCO 06/19/2025 TODAY HOWEVER IT DID NOT RELIEVE ALL HER PAIN AND SHE IS HERE FOR BACK PAIN. INCIDENTALLY SHE WAS FOUND TO HAVE A LOW BLOOD PRESSURE IN TRIAGE IN THE 70S. PATIENT HOWEVER STATES THIS IS NOT NORMAL FOR HER. SHE DENIES ANY RECENT COUGH COLD RUNNY NOSE FEVER OR CHILLS. SHE DOES HAVE A PIECE OF PAPER WITH HER THAT STATES THAT SHE HAS A 4 MM MASS IN HER RIGHT LUNG FISSURE THAT HAS BEEN UNCHANGED SINCE MARCH 2020 WHICH IS 5 YEARS AGO. SHE DOES REPORT SOME BURNING WITH URINATION. DENIES ANY OTHER SYMPTOMS. Chief Complaint: Back Pain Time Seen by MD: 09:18 Primary Care Provider: AZUL Reviewed Notes: Nurses Notes, Medications, Allergies Allergies: Coded Allergies: Codeine (Verified Allergy, Intermediate, 01/08/23) Morphine (Verified Allergy, Intermediate, 01/08/23) Penicillins (Verified Allergy, Unknown, 01/08/23) Home Meds Reported Medications Hydroxyzine Hcl (Hydroxyzine Hcl) 25 Mg Tab, 0.5 TAB PO BID, #30 TAB 06/10/24 Digoxin (Digoxin) 125 Mcg Tab, 125 MCG PO DAILY for ARRHYTHMIA, TAB 06/10/24 Carvedilol (Coreg) 6.25 Mg Tab, 1 TAB PO BID for HTN, #180 TAB 1 Refill 06/10/24 Tirzepatide (Mounjaro) 2.5 Mg/0.5 Ml Inj, 2.5 MG SC QWEEKLY for SATURDAYS, INJ 06/10/24 Docusate Sodium (DOCQLACE) 100 Mg Cap, 100 MG PO TID, CAP 06/10/24 Temazepam (Restoril) 15 Mg Cp, 1 CAP PO QPM for INSIMNIA, #30 CAP 1 Refill 06/10/24 Ticagrelor Base (Brilinta) 60 Mg Tab, 60 MG PO BID for s/p stent SFA, TAB 06/10/24 Pantoprazole Sodium Sesquihydr (Pantoprazole Sodium) 40 Mg Tab, 10 MG PO DAILY for gerd, TAB 06/10/24 Cholecalciferol (VITAMIN D3) 5,000 Unit Cap, 5000 UNIT PO DAILY, CAP 06/10/24 Latanoprost (LATANOPROST) 0.005 % Shala, 1 DROP LEFTEYE QPM for GLAUCOMA 01/08/23 Brimonidine Tartrate (Brimonidine Tartrate) 0.2 % Shala, 2 DROP LEFTEYE BID for GLAUCOMA 01/08/23 Dorzolamide-Timolol (Dorzolamide Hcl/Timolol M) 1 Ml Shala, 2 DROP LEFTEYE BID for GLAUCOMA 01/08/23 Fluticasone Propionate (Flovent Hfa) 220 Mcg Aer, 2 PUFF INH TID PRN for SHORTNESS OF BREATH 01/08/23 Albuterol Sulfate (VENTOLIN MDI) 90 Mcg Ih, 2 PUFF IN Q4HR PRN for SHORTNESS OF BREATH 01/08/23 Hydrocodone-Acetaminophen (Hydrocodone Bitartrate/AC 10-325 mg) 1 Tab Tab, 1 TAB PO Q8HR PRN for PAIN SCALE 7 THRU 10 01/08/23 Cetirizine Hcl (ZYRTEC ALLERGY) 10 Mg Tab, 1 TAB PO HS for ALLERGIES 02/22/21 Insulin Glargine (Lantus) 100 Unit/Ml Inj, 45 UNIT SC HS for DIABETES 02/22/21 Aspirin (Aspir-Low) 81 Mg Tab, 1 TAB PO DAILY for CAD 08/27/18 Sacubitril-Valsartan (Entresto 24-26 mg) 1 Tab Tab, 1 TAB PO QAM for HYPERTENSION 08/27/18 Simvastatin (Simvastatin) 20 Mg Tab, 1 TAB PO QPM for HIGH CHOLESTEROL 10/30/16 Information Source: Patient Mode of Arrival: Ambulatory Timing: Months Duration: Since onset Location of Back pain: (B) Upper back Severity: Moderate Prehospital treatment: None Onset: Spontaneous History of: Chronic Back Pain Associated signs and symptoms: None Past Medical History PAST MEDICAL HISTORY: CVA, DM, High Lipids, HTN, TIA Surgical History: Appendectomy, Pacemaker SHOT DROPPER History: Denies all SHOT DROPPER Hx Family History Family History: Reviewed,noncontributory to illness, Family hx of DM, Family hx of Cancer Social History Smoker: Non-Smoker Alcohol: Denies ETOH Use Drugs: Denies Drug Use Lives In: Home Musculoskeletal: reports: back pain All Other Systems: Reviewed and Negative ( PER HPI) Physical Exam General Appearance: No Apparent Distress, Normal HEENT: Normal ENT Inspection, Pharynx Normal Neck: Full Range of Motion, Non-Tender, Normal, Normal Inspection Respiratory: Chest Non-Tender, Lungs Clear, No Accessory Muscle Use, No Respiratory Distress, Normal Breath Sounds Cardiovascular: No Edema, No Murmur, No Gallop, Normal Peripheral Pulses, Regular Rate/Rhythm Breast Exam: Deferred Gastrointestinal: No Organomegaly, Non Tender, No Pulsatile Mass, Normal Bowel Sounds, Soft Genitalia: Deferred Pelvic: Deferred Rectal: Deferred Extremities: No calf tenderness, Normal capillary refill, Normal inspection, Normal range of motion, Non-tender, No pedal edema Musculoskeletal : Apperance: Normal Neurologic: Alert, 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 Was a procedure done?: No Back Pain Differential Dx Differential Diagnosis: Musculoskeletal Pain, Strain, Other (CHRONIC BACK PAIN) X-Ray, Labs, Meds, VS Vital Signs Date Time Temp Pulse Resp B/P (MAP) Pulse Ox O2 Delivery O2 Flow Rate FiO2 02/20/25 14:00 68 16 151/52 (85) 95 02/20/25 13:00 98.0 63 16 141/63 (89) 97 98.0 02/20/25 12:00 64 10 134/57 (82) 96 02/20/25 09:47 74 21 94 Room Air* 0 21 02/20/25 09:44 75 78 123/51 (75) 94 02/20/25 09:34 97.6 82 16 97/45 (62) 96 97.6 Lab Test 02/20/25 10:32 02/20/25 09:35 02/20/25 09:21 Range/Units Troponin I High Sensitivity 10 11 </=34 ng/L White Blood Count 10.5 4.4-10.8 10^3/uL Red Blood Count 4.73 4.0-5.20 10^6/uL Hemoglobin 12.7 12.2-16.2 g/dL Hematocrit 37.9 36.0-46.0 % Mean Corpuscular Volume 80.1 80.0-100.0 fL Mean Corpuscular Hemoglobin 26.8 L 28.0-32.0 pg Mean Corpuscular Hemoglobin Concent 33.5 32.0-36.0 g/dL Red Cell Distribution Width 14.6 H 11.8-14.3 % Platelet Count 247 140-450 10^3/uL Mean Platelet Volume 7.8 6.9-10.8 fL Neutrophils (%) (Auto) 77.0 37.0-80.0 % Lymphocytes (%) (Auto) 12.8 10.0-50.0 % Monocytes (%) (Auto) 7.7 0.0-12.0 % Eosinophils (%) (Auto) 1.8 0.0-7.0 % Basophils (%) (Auto) 0.7 0.0-2.0 % Neutrophils # (Auto) 8.1 1.6-8.6 10 ^3/uL Lymphocytes # (Auto) 1.3 0.4-5.4 10 ^3/uL Monocytes # (Auto) 0.8 0-1.3 10 ^3/uL Eosinophils # (Auto) 0.2 0-0.8 10 ^3/uL Basophils # (Auto) 0.1 0-0.2 10 ^3/uL Nucleated Red Blood Cells 0.0 % Sodium Level 140 136-145 mmol/L Potassium Level 4.1 3.5-5.1 mmol/L Chloride Level 106 98-107 mmol/L Carbon Dioxide Level 25 20-31 mmol/L Anion Gap 9 5-15 Blood Urea Nitrogen 9 9-23 mg/dL Creatinine 0.63 0.550-1.02 mg/dL Glomerular Filtration Rate Calc 96 >90 mL/min BUN/Creatinine Ratio 14.3 10.0-20.0 Serum Glucose 136 H 74-106 mg/dL Calcium Level 9.7 8.7-10.4 mg/dL Total Bilirubin 0.6 0.2-1.0 mg/dL Aspartate Amino Transferase (AST) 11 L 13-40 U/L Alanine Aminotransferase (ALT) < 9 7-40 U/L Alkaline Phosphatase 97 46-116 U/L Total Protein 7.2 5.7-8.2 g/dL Albumin 4.3 3.2-4.8 g/dL Urine Color Colorless Yellow Urine Clarity Clear Clear Urine pH 7.0 5.0-9.0 Urine Specific [place] 1.006 1.001-1.035 Urine Protein Negative Negative Urine Ketones Negative Negative Urine Blood Negative Negative /uL Urine Nitrite Negative Negative Urine Bilirubin Negative Negative Urine Urobilinogen Normal Negative mg/dL Urine Leukocyte Esterase Negative Negative /uL Urine RBC None seen 0 - 4 /hpf Urine Microscopic WBC 0-5 /HPF Urine Squamous Epithelial Cells None seen <5 /hpf Urine Bacteria None seen None Seen /hpf Urine Glucose Normal Normal mg/dL Current Medications Medications (Trade) Dose Ordered Sig/James Route Start Time Stop Time Status Last Admin Sodium Chloride 500 ml @ 500 mls/hr Q1H ONCE IV 02/20/25 09:30 02/20/25 10:29 DC 02/20/25 09:44 69-year-old female presents here with chronic upper back pain. However upon checking her vitals. She was found to be hypotensive in the 70s. Nursing staff immediately approached me asking for immediate evaluation. Patient was seen immediately by myself. At this time cause of hypotension is unclear. She does not endorse any evidence of infection. Blood work has been done which is unremarkable. Patient has been unable to provide urine in the ER. I have re- evaluated the patient multiple times. After she finished a 500 cc bolus her blood pressure has improved. Blood pressure is increased to the 128 systolic. At this time patient is feeling well. I will be discharging her home. Advised her to follow up with the PCP in 2-3 days and return to the ER if symptoms worsen or persist. Time of 1ST Reevaluation: 11:18 Reevaluation 1ST: Improved Patient Education/Counseling: Diagnosis, Treatment Family Education/Counseling: No Family Present Departure 1 Departure Time of Disposition: 12:05 Impression: Primary Impression: Chronic back pain Qualified Codes: M54.89 - Other dorsalgia; G89.29 - Other chronic pain Additional Impression: Hypotension Qualified Codes: I95.0 - Idiopathic hypotension Disposition: 01 HOME / SELF CARE / HOMELESS Condition: Good Additional Instructions: Follow up with the primary care physician in 2-3 days. Return to the ER if symptoms worsen or persist. Discharged With: Self Critical Care Note Critical Care Time?: Yes (35 min-critical care time only) Critical care comment: Time spent immediately evaluating patient. time spent performing multiple required multiple reassessments regarding her blood pressure. Patient required immediate ordering of test and therapy. Speaking to the patient and family. Stability Stability form required: No Heart Score Heart Score: Heart Score Response (Comments) Value History N/A 0 EKG N/A 0 Age N/A 0 Risk Factors N/A 0 Troponin N/A 0 Total 0 I personally scribed for BARRY GILBERT MD ([email or web address]) on 02/20/25 at 10:02. E lectronically submitted by Minal Bauer ([email or web address]). I personally scribed for BARRY GILBERT MD ([email or web address]) on 02/20/25 at 12:05. Electronically submitted by Minal Bauer ([email or web address]). I personally scribed for BARRY GILBERT MD ([email or web address]) on 02/20/25 at 14:02. Electronically submitted by Minal Bauer ([email or web address]). BARRY GILBERT MD Feb 20, 2025 09:30
[2025-02-20] MEDS: SODIUM CHLORIDE 0.9% 500 ML IV ONE (09:44)
[2025-02-20 09:47] VITALS: PULSE 74; RESP 21; O2SAT 94
[2025-02-20 09:59] LABS: Basophils # (auto) 0.1 10 ^3/uL (0-0.2); Eosinophils # (auto) 0.2 10 ^3/uL (0-0.8); Eosinophils % (auto) 1.8 % (0.0-7.0); Hemoglobin 12.7 g/dL (12.2-16.2); Mean Corpuscular Hgb Conc. 33.5 g/dL (32.0-36.0); Monocytes # (auto) 0.8 10 ^3/uL (0-1.3); White Blood Cell 10.5 10^3/uL (4.4-10.8)
[2025-02-20 10:01] LABS: Basophils % (auto) 0.7 % (0.0-2.0); Hematocrit 37.9 % (36.0-46.0); Lymphocytes # (auto) 1.3 10 ^3/uL (0.4-5.4); Lymphocytes % (auto) 12.8 % (10.0-50.0); Mean Corpuscular Hemoglobin 26.8 pg (28.0-32.0); Mean Corpuscular Volume 80.1 fL (80.0-100.0); Monocytes % (auto) 7.7 % (0.0-12.0); Neutrophils # (auto) 8.1 10 ^3/uL (1.6-8.6); Platelet Count (auto) 247 10^3/uL (140-450); Red Blood Cells 4.73 10^6/uL (4.0-5.20); Red Cell Distribution Width 14.6 % (11.8-14.3)
[2025-02-20 10:17] LABS: Albumin 4.3 g/dL (3.2-4.8); Alkaline Phosphatase 97 U/L (46-116); Anion Gap 9 (5-15); BUN/Creatinine Ratio 14.3 (10.0-20.0); Blood Urea Nitrogen 9 mg/dL (9-23); Calcium 9.7 mg/dL (8.7-10.4); Carbon Dioxide 25 mmol/L (20-31); Chloride 106 mmol/L (98-107); Potassium 4.1 mmol/L (3.5-5.1); Sodium 140 mmol/L (136-145); Total Protein 7.2 g/dL (5.7-8.2)
[2025-02-20 10:18] LABS: Bilirubin, Total 0.6 mg/dL (0.2-1.0)
[2025-02-20 10:21] LABS: Alanine Aminotransferase < 9 U/L (7-40); Aspartate Aminotransferase 11 U/L (13-40); Glucose 136 mg/dL (74-106)
[2025-02-20 13:00] VITALS: TEMP 98
[2025-02-20 13:11] LABS: Urine Bacteria None Seen /hpf (None Seen)
[2025-02-20 13:24] LABS: Urine Blood Negative /uL (Negative); Urine Clarity Clear (Clear); Urine Color Colorless (Yellow); Urine Protein, UAD Negative (Negative); Urine Specific Gravity 1.006 (1.001-1.035); Urine Squamous Epithelial Cell None Seen /hpf (<5); Urine Urobilinogen Normal (Negative)
[2025-02-20 14:00] VITALS: BP 151/52; PULSE 68; RESP 16; O2SAT 95
== END 2025-02-20 14:30 | disposition home or self-care (01) ==
LOC: ER 08:45
DX: G89.29 Other chronic pain (principal); M54.9 Dorsalgia, unspecified; I95.0 Idiopathic hypotension; R30.9 Painful micturition, unspecified; I10 Essential (primary) hypertension; E11.9 Type 2 diabetes mellitus without complications; E78.5 Hyperlipidemia, unspecified; Z79.899 Other long term (current) drug therapy; Z86.73 Personal history of transient ischemic attack (TIA), and cerebral infarction without residual deficits; Z90.49 Acquired absence of other specified parts of digestive tract; Z95.0 Presence of cardiac pacemaker; Z88.0 Allergy status to penicillin; Z88.5 Allergy status to narcotic agent
CPT/HCPCS: 36415; 80053; 81001; 84484; 85025; 99285; J7040

== ENCOUNTER 2025-02-23 10:07 | Outpatient (CLI) | payer OTHER, MEDICAID ==
[~2025-02-23] VITALS: Ht 154.9 cm; Wt 62.6 kg
[2025-02-23 10:18] VITALS: BP 101/55; PULSE 75; RESP 16; O2SAT 99
[2025-02-23 10:35] VITALS: BP 104/52; PULSE 69; RESP 16; O2SAT 99
--- NOTE | 2025-02-23 14:02 | DVH ---
XY CHEST TWO VIEWS ROUTINE CLINICAL HISTORY: PRE OP CARDIAC CLEARANCE COMPARISON: XY CHEST TWO VIEWS ROUTINE on DOS: 01/08/23, XY CHEST TWO VIEWS ROUTINE on DOS: 11/13/22 TECHNIQUE: Frontal and lateral view of the chest was obtained FINDINGS: Lines and Tubes: Left pacemaker/AICD Lungs: No focal consolidation. Pleura: No effusion. No pneumothorax. Cardiomediastinal contours: Unremarkable Bones: No acute osseous abnormality. IMPRESSION: No acute cardiopulmonary disease.
[2025-02-23] MEDS ORDERED: SACU1TAB PO (14:12)
[2025-02-23] MEDS ORDERED: MONT-8 PO (14:12)
[2025-02-23] MEDS ORDERED: DICL5GEL TOP (14:12)
[2025-02-23] MEDS ORDERED: VERI2.5T PO (14:12)
== END 2025-02-23 17:00 | disposition home or self-care (01) ==
LOC: Rad HDHVI 10:07
PROVIDERS: ATTEND Internal Medicine Cardiovascular Disease
DX: Z01.818 Encounter for other preprocedural examination (principal); Z45.02 Encounter for adjustment and management of automatic implantable cardiac defibrillator
CPT/HCPCS: 71046; 93005; G0463

== ENCOUNTER 2025-02-26 07:51 | Day surgery (SDC) | payer OTHER, MEDICAID ==
[2025-02-23 13:24] LABS: Basophils # (auto) 0.1 10 ^3/uL (0-0.2); Basophils % (auto) 0.9 % (0.0-2.0); Eosinophils # (auto) 0.1 10 ^3/uL (0-0.8); Eosinophils % (auto) 1.8 % (0.0-7.0); Hematocrit 40.6 % (36.0-46.0); Hemoglobin 13.7 g/dL (12.2-16.2); Lymphocytes # (auto) 1.6 10 ^3/uL (0.4-5.4); Lymphocytes % (auto) 19.8 % (10.0-50.0); Mean Corpuscular Hemoglobin 27.2 pg (28.0-32.0); Mean Corpuscular Hgb Conc. 33.8 g/dL (32.0-36.0); Mean Corpuscular Volume 80.4 fL (80.0-100.0); Monocytes # (auto) 0.7 10 ^3/uL (0-1.3); Neutrophils # (auto) 5.7 10 ^3/uL (1.6-8.6); Neutrophils % (auto) 69.5 % (37.0-80.0); Platelet Count (auto) 287 10^3/uL (140-450); Red Blood Cells 5.05 10^6/uL (4.0-5.20); Red Cell Distribution Width 15.1 % (11.8-14.3); White Blood Cell 8.2 10^3/uL (4.4-10.8)
[2025-02-23 13:37] LABS: INR 1.04 (0.9-1.15); Partial Thromboplastin Time 27.5 SEC (24.5-34.5)
[2025-02-23 13:59] LABS: Chloride 105 mmol/L (98-107); Potassium 4.3 mmol/L (3.5-5.1); Sodium 141 mmol/L (136-145)
[2025-02-23 14:00] LABS: Anion Gap 8 (5-15); Calcium 9.9 mg/dL (8.7-10.4); Carbon Dioxide 28 mmol/L (20-31)
[2025-02-23 14:05] LABS: BUN/Creatinine Ratio 15.2 (10.0-20.0); Blood Urea Nitrogen 10 mg/dL (9-23)
[2025-02-23 14:07] LABS: Glucose 149 mg/dL (74-106)
[~2025-02-26] VITALS: Ht 154.9 cm; Wt 62.6 kg
[~2025-02-26 07:51] MED LIST changes: -CETI1TAB36 PO; +DICL5GEL TOP; -HYDR-3682 PO; +MONT-8 PO; -TEMA15CA2 PO; +VERI2.5T PO
[2025-02-26] MEDS: VANCOMYCIN 1GM/200ML PM 200 ML IV ONE (08:37)
[2025-02-26] MEDS: MIDAZOLAM HCL 2MG/2ML 2ml VIAL (1mg/ml) ONE (08:37)
[2025-02-26] MEDS: VANCOMYCIN HCL 1000 MG VL ONE (08:37)
[2025-02-26] MEDS: fentaNYL CITRATE 100 MCG/2 ML VL ONE (08:37)
[2025-02-26] MEDS: LIDOCAINE 2%HCL (LOCAL ANESTH.) INJ 20ML MDV ONE (08:41)
[2025-02-26 09:39] VITALS: BP 127/54; PULSE 64; RESP 10; TEMP 98; O2SAT 97
[2025-02-26 09:54] VITALS: BP 125/55; PULSE 64; RESP 17; TEMP 98; O2SAT 95
[2025-02-26 10:09] VITALS: BP 129/61; PULSE 64; RESP 10; TEMP 98; O2SAT 97
--- NOTE | 2025-02-26 10:18 | DVHDS ---
DATE OF DISCHARGE: 02/26/2025 DISCHARGE DIAGNOSES: Congestive heart failure with reduced ejection fraction, chronic on acute, status post BiV AICD implantation. HOSPITAL COURSE: Clinically, the patient is stable. We put her on Levaquin 500 mg p.o. daily for 5 days. Follow up with me in 1 week. Stable at the time of discharge. DISPOSITION: Home. ACTIVITY: As instructed. DIET: 2 g sodium diet. Chris Lyman MD SA/PANCHO/[place] TID: [id number] RECEIPT: [id number]
[2025-02-26 10:24] VITALS: BP 138/67; PULSE 64; RESP 17; TEMP 98; O2SAT 95
--- NOTE | 2025-02-26 10:24 | DVHOP ---
DATE OF SURGERY: 02/26/2025 PROCEDURES PERFORMED: * Explantation of Bi-V AICD. * Implantation of new Bi-V AICD. * Conscious sedation. DESCRIPTION OF PROCEDURE: The patient was prepped and draped in sterile condition. 1% Xylocaine was used to anesthetize the left subclavicular region. Using a 10-blade, a linear incision was made using blunt dissection and electrocautery. Pocket of the old generator was explanted. The device explanted is a Biotronik device. The new device implant is a Rivacor 7 HF-DQP, model number [id number], serial number [id number]. The leads are old leads. Solia S45, serial number [id number], and RV lead is Plexa NINI 65-18, serial number [id number]. LV lead is Sentus S85 QP, serial number [id number]. Threshold parameter is atrium P-wave amplitude of 2.5 millivolts, threshold of 0.6 volts at 0.4 milliseconds pulse duration, pacing impedance of 520 ohms. Right ventricular lead, R-wave amplitude of 240 millivolts, threshold of 0.6 volts at 0.4 milliseconds pulse duration. The patient impedance of 540 ohms, shock impedance of 45 ohms. Left ventricular lead, R-wave amplitude of 9.0 millivolts, threshold of 1.4 volts at 0.4 milliseconds pulse duration, pacing impedance of 480 ohms. CONCLUSION: The patient had successful explantation of Bi-V Biotronik device, implantation of new Bi-V, MRI compatible AICD. Chris Lyman MD SA/SHANIA TID: [id number] RECEIPT: [id number]
[2025-02-26 10:39] VITALS: BP 137/68; PULSE 64; RESP 15; TEMP 98; O2SAT 97
--- NOTE | 2025-02-26 17:48 | DVHHP ---
ADMIT DATE: 02/26/2025 HISTORY OF PRESENT ILLNESS: The patient is well known to me, 69, with history of ischemic cardiomyopathy, depressed left ventricular ejection fraction. The patient with biventricular AICD and since then the patient has done remarkably well. She now has AICD end of life. The patient is now to undergo biventricular AICD generator change. Risks and benefits explained to the patient. PERTINENT MEDICAL HISTORY: Significant for: * Congestive heart failure with reduced ejection fraction, chronic on acute. * EF less than 20%. * Stress Cardiolite failed to demonstrate any reversibility at this time. * Intermittent episodes of atrial fibrillation. * The patient is not pacemaker/AICD dependent. * History of hypertension and hyperlipidemia. FAMILY HISTORY: Negative. SOCIAL HISTORY: Negative. REVIEW OF SYSTEMS: She denies any fever, chills, melena, hematochezia, hematemesis, hemoptysis. No bleeding diathesis. No history of CVA. No history of any lung disease. No history of tobacco or alcohol use. No history of GI symptomatology such as irritable bowel syndrome or inflammatory bowel disease. No liver disease. No kidney disease at this time. PHYSICAL EXAMINATION: VITAL SIGNS: Blood pressure is 158/72, pulse of 70, O2 saturation 98% on room air. HEENT: Pupils are reactive. Funduscopic exam shows no AV nicking. No exudates. No papilledema. Sclerae anicteric. Extraocular muscles are intact. No cervical adenopathy. No supraclavicular adenopathy. No JVD appreciated. Oral mucosa moist. Posterior pharynx without any exudate. PULMONARY: Clear to auscultation. CARDIOVASCULAR: Regular rate without S3, without S4. PMI is nondisplaced. ABDOMEN: Soft, nontender. Normal bowel sounds. Stool guaiac is negative. EXTREMITIES: 1+ pulses, 1+ edema. NEUROLOGIC: The patient is intact. DTRs are 2+ and symmetrical. Cranial nerves 2 through 12 are within normal limits. ASSESSMENT: Thus, the patient with cardiomyopathy, EF less than 20%. The patient is now to undergo biventricular AICD generator change. Further recommendations after. Chris Lyman MD SA/ATIF TID: [id number] RECEIPT: [id number]
== END 2025-02-26 11:25 | disposition home or self-care (01) ==
LOC: CATH 07:51
PROVIDERS: ATTEND Internal Medicine Cardiovascular Disease
DX: Z45.02 Encounter for adjustment and management of automatic implantable cardiac defibrillator (principal); I11.0 Hypertensive heart disease with heart failure; I50.23 Acute on chronic systolic (congestive) heart failure; I25.5 Ischemic cardiomyopathy; I48.91 Unspecified atrial fibrillation; E78.5 Hyperlipidemia, unspecified; G47.30 Sleep apnea, unspecified; F32.A Depression, unspecified; Z95.810 Presence of automatic (implantable) cardiac defibrillator; Z79.82 Long term (current) use of aspirin; Z79.899 Other long term (current) drug therapy; Z79.4 Long term (current) use of insulin; Z87.891 Personal history of nicotine dependence; Z95.5 Presence of coronary angioplasty implant and graft; Z88.0 Allergy status to penicillin; Z80.0 Family history of malignant neoplasm of digestive organs; Z80.8 Family history of malignant neoplasm of other organs or systems; Z83.3 Family history of diabetes mellitus
CPT/HCPCS: 33264; 36415; 80048; 85025; 85610; 85730; C1882; J2250; J3010; J3370; J7030; 33263; 99152

== ENCOUNTER 2025-05-04 08:07 | Outpatient (CLI) | payer OTHER, MEDICAID ==
--- NOTE | 2025-05-04 13:56 | DVH ---
EXAM: XY R SHOULDER 2+ VIEW XRAY CLINICAL INDICATION: SHOULDER PAIN TECHNIQUE: XY R SHOULDER 2+ VIEW XRAY Comparison: None FINDINGS/IMPRESSION: There is no evidence of acute fracture or dislocation. Advanced right glenohumeral osteoarthritis The alignment is anatomical. There is no radiopaque foreign body.
== END 2025-05-04 17:00 | disposition home or self-care (01) ==
LOC: Rad HDHVI 08:07
PROVIDERS: ATTEND Internal Medicine Cardiovascular Disease
DX: M19.011 Primary osteoarthritis, right shoulder (principal); M25.511 Pain in right shoulder
CPT/HCPCS: 73030

== ENCOUNTER 2025-06-17 07:57 | Outpatient (CLI) | payer OTHER, MEDICAID | END 2025-06-17 17:00 | disposition home or self-care (01) | LOC: Rad HDHVI 07:57 | PROVIDERS: ATTEND Internal Medicine Cardiovascular Disease | DX: I08.2 Rheumatic disorders of both aortic and tricuspid valves (principal); I11.0 Hypertensive heart disease with heart failure; I50.9 Heart failure, unspecified; R06.02 Shortness of breath | CPT/HCPCS: 93306 ==